=== PATIENT | male | born 2000 | race Caucasian/White ===

== ENCOUNTER 2024-12-23 15:15 | Day surgery (SDC) | payer BC, OTHER ==
[2024-12-23 15:20] VITALS: BMI 21.2
[2024-12-23] MEDS ORDERED: ACETAMINOPHEN INJECTION 100 ML ONE (16:14)
[2024-12-23] MEDS ORDERED: ONDANSETRON 4 MG/2 ML VIAL ONE (16:14)
[2024-12-23] MEDS: ONDANSETRON 4 MG/2 ML VIAL IVPUSH ONE (16:19)
[2024-12-23] MEDS: ACETAMINOPHEN 1000 MG/100 ML BAG IVPB ONE (16:19)
[2024-12-23] MEDS: LACTATED RINGERS SOLUTION 1000 ML INFUS.BAG IV ONE (16:20)
[2024-12-23 16:38] LABS: MCHC 30.9 g/dl (32.3-36.5); MEAN CELL VOLUME 83.2 fl (79.0-92.2); MEAN PLT VOLUME 10.2 fl (9.4-12.4); RDW 13.2 % (11.9-15.3)
[2024-12-23 17:07] LABS: CO2 28.0 mmol/L (21-32); GLUCOSE,RANDOM 128.0 mg/dL (74-106)
[2024-12-23 17:10] LABS: CREATININE 0.9 mg/dL (0.55-1.3); SGOT/AST 17.0 U/L (15-37); SGPT/ALT 26.0 U/L (13-61)
[2024-12-23 17:11] LABS: TOT PROT 8.3 g/dl (6.4-8.2)
[2024-12-23 17:13] LABS: ALK PHOS 78.0 U/L (45-117)
[2024-12-23] MEDS ORDERED: MORPHINE SULFATE 2 MG/ML SYRINGE ONE (17:58)
[2024-12-23] MEDS: morphine CARPU-JECT 2 MG/1 ML DISP.SYRIN IVPUSH ONE (18:01)
[2024-12-23 18:04] LABS: HCV DIAGNOSTIC IN-HOUSE W/RFLX NON-REACTIVE (NONREACTIVE)
[2024-12-23 18:05] LABS: HIV INTERPRETATION NEGATIVE (NEGATIVE)
[2024-12-23] MEDS ORDERED: PIPERACILLIN/TAZOB 4.5 GM 4.5 GM/100 ML BAG IVPB ONE (18:40)
[2024-12-23] MEDS: PIPERACILLIN/TAZOB 4.5 GM 4.5 GM in DEXTROSE 5%-WATER 100 ML IVPB ONE (19:21)
[2024-12-23 19:34] LABS: INR 1.16 (0.83-1.09); PROTHROMBIN TIME (PATIENT) 12.6 SEC (9.7-13.0)
[2024-12-23 19:37] LABS: ACTIVATED PTT 25.0 SECONDS (25.2-36.5)
[2024-12-23] MEDS ORDERED: ACETAMINOPHEN 325 MG TABLET (FP) PO PRN (20:09)
[2024-12-23] MEDS ORDERED: ONDANSETRON 4 MG/2 ML VIAL IVPUSH PRN (20:10)
[2024-12-23] MEDS: LACTATED RINGERS SOLUTION 1,000 ML/1,000 ML INFUS.BAG IV SCH (21:10)
[2024-12-23] MEDS ORDERED: ALBUTEROL SO4 2.5/IPRATROPIUM 0.5 INH SOL 3 ML VIAL.NEB. NEB PRN (21:50)
[2024-12-24] MEDS: PIPERACILLIN/TAZOB 3.375 GM 3.375 GM in DEXTROSE 5%-WATER - 50 ML IVPB SCH ×2 (01:03→16:17)
[2024-12-24 08:30] LABS: ABSOLUTE IMMATURE GRANULOCYTES 0.03 x10^3/uL (0.0-0.031); BASOPHILS # 0.04 x10^3/uL (0.01-0.08); EOSINOPHIL % 0.8 % (0.8-7.0); EOSINOPHILS # 0.08 x10^3/uL (0.04-0.54); MCHC 31.3 g/dl (32.3-36.5); MEAN CELL VOLUME 83.1 fl (79.0-92.2); MEAN PLT VOLUME 10.6 fl (9.4-12.4); MONOCYTE # 0.87 x10^3/uL (0.30-0.82); MONOCYTE % 8.6 % (5.3-12.2); RDW 13.5 % (11.9-15.3)
[2024-12-24 09:02] LABS: CO2 30.0 mmol/L (21-32); GLUCOSE,RANDOM 93.0 mg/dL (74-106)
[2024-12-24 09:05] LABS: CREATININE 0.8 mg/dL (0.55-1.3); SGPT/ALT 18.0 U/L (13-61)
[2024-12-24 09:06] LABS: SGOT/AST 10.0 U/L (15-37)
[2024-12-24 09:08] LABS: ALK PHOS 57.0 U/L (45-117)
[2024-12-24 09:17] LABS: TOT PROT 6.3 g/dl (6.4-8.2)
[2024-12-24] MEDS ORDERED: cefOXitin SODIUM 2 GM VIAL (RESTRICTED TO ID) IVPB ONE (11:17)
[2024-12-24] MEDS ORDERED: HEPARIN NA (PORCINE) 5,000 UNITS/ML 1ML VIAL ONE (11:17)
[2024-12-24] MEDS ORDERED: MIDAZOLAM HCL 2 MG/2 ML SINGLE DOSE VIAL ONE (11:37)
[2024-12-24] MEDS ORDERED: PROPOFOL 20 ML ONE ×3 (11:44→12:37)
[2024-12-24] MEDS ORDERED: SUCCINYLCHOLINE CHLORIDE 200 MG/10 ML SYRINGE ONE ×2 (11:44→12:13)
[2024-12-24] MEDS ORDERED: ROCURONIUM BROMIDE 50 MG/5 ML SYRINGE ONE (11:45)
[2024-12-24] MEDS: cefOXitin SODIUM 2 GM VIAL (RESTRICTED TO ID) IVPB ONE ×2 (11:50)
[2024-12-24] MEDS: BUPIVACAINE HCL/PF 0.25% (2.5MG/ML) 10 ML VIAL IJ ONE ×2 (12:09)
[2024-12-24] MEDS ORDERED: SUGAMMADEX SODIUM 200 MG/2 ML VIAL ONE (12:24)
[2024-12-24] MEDS ORDERED: ONDANSETRON 4 MG/2 ML VIAL IVPUSH PRN (13:26)
[2024-12-24] MEDS ORDERED: ALBUTEROL SO4 2.5/IPRATROPIUM 0.5 INH SOL 3 ML VIAL.NEB. NEB PRN (13:26)
[2024-12-24] MEDS: LACTATED RINGERS SOLUTION 1,000 ML/1,000 ML INFUS.BAG IV SCH (14:09)
[2024-12-24] MEDS: LACTATED RINGERS SOLUTION 1,000 ML IV SCH (14:28)
[2024-12-24 15:04] VITALS: BP 112/61; PULSE 45; RESP 18; TEMP 97.9
[2024-12-24] MEDS: ACETAMINOPHEN 325 MG TABLET (FP) PO PRN (19:34)
== END 2024-12-24 21:25 | disposition home or self-care (01) ==
LOC: JER 15:15 → JERBED 18:37 → UNDOADMIN 18:37 → JERBED 21:52 → J5S 21:52 → JASUSAT 12-24 13:49 → J5S 12-24 14:05 → JASUSAT 12-24 21:25
PROVIDERS: ATTEND Internal Medicine
PROC: 0DTJ4ZZ Resection of Appendix, Percutaneous Endoscopic Approach (ICD-10-PCS; principal; 2024-12-24 14:00)
DX: K35.80 Unspecified acute appendicitis (principal)
CPT/HCPCS: 36415; 74177-TC; 80053; 83690; 83735; 84100; 85025; 85610; 85730; 86803; 86850; 86900; 86901; 87389; 87637-QW; 93005; 93010; 94010; 94760; 99285-25